=== PATIENT | female | born 1940 | race Caucasian/White ===

== ENCOUNTER 2018-11-22 14:25 | Outpatient (CLI) | payer MEDICARE ==
[~2018-11-22] VITALS: Ht 165.1 cm; Wt 85.7 kg
[2018-11-22 14:35] VITALS: BP 118/68
--- NOTE | 2018-11-22 23:00 | Consultation ---
DATE OF CONSULTATION: 11/22/2018 CHIEF COMPLAINT: Nausea, vomiting, abdominal pain, and constipation. HISTORY OF PRESENT ILLNESS: This is a 78-year-old female with numerous medical problems, which I will dictate in a second, who was referred to us for evaluation of the indigestion, nausea, and vomiting. The patient cannot eat. At nighttime, she has to put her fingers in her throat and vomit, so she feels better because the food does not get digested in the stomach. She also has severe constipation for which she has to take herbal medications to move her bowels, which she has been taking for many years. 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 PAST MEDICAL HISTORY: 1. History of hiatal hernia. 2. Hypothyroidism. 3. Borderline diabetes. 4. Hepatitis A. 5. Hypercholesterolemia. PAST SURGICAL HISTORY: Tonsillectomy and left knee surgery. MEDICATIONS: Please see medication reconciliation list. ALLERGIES: No known drug allergies. FAMILY HISTORY: No family history of GI malignancies. SOCIAL HISTORY: The patient denies any tobacco, alcohol, or IV drug abuse. REVIEW OF SYSTEMS: Positive for indigestion, persistent vomiting, belching, and constipation. PHYSICAL EXAMINATION: VITAL SIGNS: Temperature 98.4, blood pressure is 118/68, pulse is 83, and respirations 20. HEENT: Normocephalic and atraumatic. Sclerae anicteric. NECK: Supple. No evidence of obvious lymphadenopathy. CARDIOVASCULAR: Regular rhythm. Plus S1 and S2. No obvious murmur. LUNGS: Clear to auscultation bilaterally. ABDOMEN: Positive bowel sounds. Soft and nontender. No rebound. No guarding. No peritoneal sign. EXTREMITIES: No cyanosis. No clubbing. No edema. ASSESSMENT: This is a 78-year-old female with persistent vomiting possibly secondary to a large hiatal hernia, chronic GERD symptoms, and also chronic constipation. Last colonoscopy over 5 years ago. PLAN: The patient definitely needs an endoscopy and colonoscopy for the above. Also, the patient was given a sample of Trulance to try to see if that works for her. We will schedule her for endoscopy and colonoscopy when authorization is approved. Jesse Mike Strauss DR: DEB JOB#: [id number] CC:
[2018-11-23] MEDS ORDERED: CRESTOR20 MG ORAL (07:45)
[2018-11-23] MEDS ORDERED: SYNTHROID100 MCG ORAL (07:45)
== END 2018-11-22 15:53 | disposition home or self-care (01) ==
LOC: PAN 14:25
DX: R11.2 Nausea with vomiting, unspecified (principal); R10.9 Unspecified abdominal pain; K59.00 Constipation, unspecified; E03.9 Hypothyroidism, unspecified; E78.00 Pure hypercholesterolemia, unspecified; K44.9 Diaphragmatic hernia without obstruction or gangrene